=== PATIENT | male | born 1935 | race Caucasian/White ===

== ENCOUNTER 2016-12-09 17:31 | Inpatient (IN) | payer OTHER, MEDICARE ==
[~2016-12-09] VITALS: Ht 180.3 cm; Wt 87.0 kg
[2016-12-09] VITALS (7 sets, daily range): BP systolic 140–151; BP diastolic 65–77; PULSE 75–92; RESP 16–20; TEMP 98.2–98.4; O2SAT 95–98
[2016-12-09] MEDS ORDERED: SODIUM CHLORIDE 0.9% FLUSH 5 ML FLUSH IVF PRN (17:45)
[2016-12-09] MEDS ORDERED: TRIBTAB PO (17:46)
[2016-12-09] MEDS ORDERED: METF500T PO (17:46)
[2016-12-09] MEDS ORDERED: CELE1CAP11 PO (17:46)
--- NOTE | 2016-12-09 17:54 | PD ---
HPI Chief Complaint: Neuro Symptoms/ Deficits Time Seen by Provider: 17:45 Travel History International Travel<30 days: No Contact w/Intl Traveler<30days: No Traveled to known affect area: No History of Present Illness HPI 81-year-old male coming in with reports of possible TIA approximately 45 minutes prior to arrival via ambulance. Patient currently feels fine. Patient's family states a 6 minute episode of decreased responsiveness with question of right sided facial droop and reaching for objects that weren't there.. Patient does not recall the event. Patient currently states no headache, dizziness, visual changes, or weakness of any kind. Patient has no history of cardiac issues in the past. Patient is a type II diabetic taking metformin, hypertension medications, [facility] Past Medical History Diabetes: Yes Patient Takes Glucophage: Yes Hypertension: Yes Past Surgical History Abdominal Surgery: Yes (COLON RESECTION) Appendectomy: Yes Cholecystectomy: Yes Social History Alcohol Use: No (HX) Tobacco Use: No Substance Use: No Allergies-Medications (Allergen,Severity, Reaction): Coded Allergies: No Known Allergies (Unverified , 12/09/16) Reported Meds & Prescriptions Reported Meds & Active Scripts Active Reported Celecoxib 50 Mg Cap Unknown Dose PO BID Metformin (Metformin HCl) 500 Mg Tab 500 Mg PO BIDPC With meals Tribenzor (Rfldkhtben-Iomeqczrho-Jvxoqmzsxktmtfhjejn) 20-5-12.5 mg Tab Unknown Dose PO DAILY Review of Systems Except as stated in HPI: all other systems reviewed are Neg General / Constitutional: No: Fever Eyes: No: Visual changes HENT: No: Headaches, Vertigo, Lightheadedness Cardiovascular: No: Chest Pain or Discomfort Respiratory: No: Shortness of Breath Gastrointestinal: No: Abdominal Pain Genitourinary: No: Dysuria Musculoskeletal: No: Pain Skin: No Rash Neurologic: No: Weakness, Dizziness, Focal Abnormalities, Coordination Problem , Tremor, Ataxia, Headache, Change in Mentation, Slurred Speech, Paresthesia, Incontinence, Seizures, Sensory Disturbance Psychiatric: No: Depression Endocrine: No: Polydipsia Hematologic/Lymphatic: No: Easy Bruising Physical Exam Narrative GENERAL: Patient appears in good spirits and in no acute distress. SKIN: Warm and dry. Normal color. Normal turgor. HEAD: Atraumatic. Normocephalic. EYES: Pupils equal and round. Status post cataracts bilaterally. No scleral icterus. No injection or drainage. ENT: No nasal bleeding or discharge. Mucous membranes pink and moist. No facial droop. Patient able swallow without difficulty. Pharynx is clear. Uvula is midline. Tongue motions normal. NECK: Trachea midline. No JVD. Supple and nontender. CARDIOVASCULAR: Regular rate and rhythm. No murmurs gallops or rubs. RESPIRATORY: No accessory muscle use. Clear to auscultation. Breath sounds equal bilaterally. GASTROINTESTINAL: Abdomen soft, non-tender, nondistended. Hepatic and splenic margins not palpable. MUSCULOSKELETAL: Extremities without clubbing, cyanosis, or edema. No obvious deformities. NEUROLOGICAL: Awake and alert. No obvious cranial nerve deficits. Motor grossly within normal limits. Five out of 5 muscle strength in the arms and legs. Normal speech. PSYCHIATRIC: Appropriate mood and affect; insight and judgment normal. Data Data Last Documented VS Vital Signs Date Time Temp Pulse Resp B/P Pulse Ox O2 Delivery O2 Flow Rate FiO2 12/09/16 19:00 85 18 151/67 98 Room Air Orders Electrocardiogram (12/09/16 17:42) Complete Blood Count With Diff (12/09/16 17:42) Comprehensive Metabolic Panel (12/09/16 17:42) Magnesium (Mg) (12/09/16 17:42) Ckmb (Isoenzyme) Profile (12/09/16 17:42) Troponin I (12/09/16 17:42) Act Partial Throm Time (Ptt) (12/09/16 17:42) Prothrombin Time / Inr (Pt) (12/09/16 17:42) Chest, Single Ap (12/09/16 17:42) Ct Brain W/O Iv Contrast(Rout) (12/09/16 17:42) Ecg Monitoring (12/09/16 17:42) Iv Access Insert/Monitor (12/09/16 17:42) Oximetry (12/09/16 17:42) Sodium Chloride 0.9% Flush (Ns Flush) (12/09/16 17:45) Admit Order (Ed Use Only) (12/09/16 19:19) Labs Laboratory Tests Test 12/09/16 18:00 White Blood Count 12.1 TH/MM3 Red Blood Count 6.05 MIL/MM3 Hemoglobin 15.9 GM/DL Hematocrit 47.7 % Mean Corpuscular Volume 78.8 FL Mean Corpuscular Hemoglobin 26.3 PG Mean Corpuscular Hemoglobin 33.3 % Concent Red Cell Distribution Width 14.7 % Platelet Count 377 TH/MM3 Mean Platelet Volume 8.2 FL Neutrophils (%) (Auto) 80.4 % Lymphocytes (%) (Auto) 12.9 % Monocytes (%) (Auto) 4.3 % Eosinophils (%) (Auto) 1.3 % Basophils (%) (Auto) 1.1 % Neutrophils # (Auto) 9.7 TH/MM3 Lymphocytes # (Auto) 1.6 TH/MM3 Monocytes # (Auto) 0.5 TH/MM3 Eosinophils # (Auto) 0.2 TH/MM3 Basophils # (Auto) 0.1 TH/MM3 CBC Comment DIFF FINAL Differential Comment Prothrombin Time 10.7 SEC Prothromb Time International 1.0 RATIO Ratio Activated Partial 24.5 SEC Thromboplast Time Sodium Level 135 MEQ/L Potassium Level 4.9 MEQ/L Chloride Level 103 MEQ/L Carbon Dioxide Level 21.2 MEQ/L Anion Gap 11 MEQ/L Blood Urea Nitrogen 24 MG/DL Creatinine 1.71 MG/DL Estimat Glomerular Filtration 39 ML/MIN Rate Random Glucose 149 MG/DL Calcium Level 9.5 MG/DL Magnesium Level 2.0 MG/DL Total Bilirubin 0.5 MG/DL Aspartate Amino Transf 27 U/L (AST/SGOT) Alanine Aminotransferase 20 U/L (ALT/SGPT) Alkaline Phosphatase 63 U/L Total Creatine Kinase 94 U/L Troponin I LESS THAN 0.02 NG/ML Total Protein 7.5 GM/DL Albumin 3.7 GM/DL MDM Medical Decision Making Medical Screen Exam Complete: Yes Emergency Medical Condition: Yes Differential Diagnosis Stroke. TIA. Near syncopal episode. Narrative Course Patient is medically stable at time of exam. CT of the head is ordered. EKG is performed. Showing a normal sinus rhythm without significant ST-T changes. This is reviewed with Dr. Luna. Labs ordered including CBC, CMP, cardiac panel, and PT PTT and INR. Labs are unremarkable. Chest x-ray is normal per radiologist. CT scan shows no acute findings per radiologist. Patient is felt to warrant observation and further neurological workup. Call was placed to the hospitalist, and patient is discussed with Dr. Frye. Patient will be admitted to Obs. Diagnosis Primary Impression: TIA (transient ischemic attack) Qualified Code: G45.9 - Transient cerebral ischemia, unspecified type Admitting Information Admitting Physician Requests: Observation Condition: Stable Hayden Lao Dec 09, 2016 17:54
--- NOTE | 2016-12-09 18:09 | RADRPT ---
EXAM DATE/TIME: 12/09/2016 17:42 [facility] COMPARISON: No previous studies available for comparison. INDICATIONS : Syncopal episode. MEDICAL HISTORY : None. SURGICAL HISTORY : None. ENCOUNTER: Initial ACUITY: 1 day PAIN SCORE: 0/10 LOCATION: Bilateral chest FINDINGS: A single view of the chest demonstrates the lungs to be symmetrically aerated without evidence of mas s, infiltrate or effusion. The cardiomediastinal contours are unremarkable. Degenerative changes and scoliosis of the thoracic spine are noted. CONCLUSION: No acute disease. Bijan Ch MD on December 09, 2016 at 18:08 Board Certified Radiologist. This report was verified electronically.
[2016-12-09 18:18] LABS: AUTOMATED NEUTROPHIL # 9.7 TH/MM3 (1.8-7.7); BASOPHIL # 0.1 TH/MM3 (0-0.2); BASOPHIL % 1.1 % (0.0-2.0); EOSINOPHIL # 0.2 TH/MM3 (0-0.4); EOSINOPHIL % 1.3 % (0.0-4.0); HEMATOCRIT 47.7 % (39.0-51.0); HEMO FLAGS DIFF FINAL; LYMPH % 12.9 % (9.0-44.0); LYMPHOCYTE # 1.6 TH/MM3 (1.0-4.8); MEAN CELL VOLUME 78.8 FL (80.0-100.0); MEAN CORPUSCULAR HEMOGLOBIN 26.3 PG (27.0-34.0); MEAN CORPUSCULAR HGB CONC 33.3 % (32.0-36.0); MONO % 4.3 % (0.0-8.0); NEUT % 80.4 % (16.0-70.0); PLATELET COUNT 377 TH/MM3 (150-450); RED BLOOD COUNT 6.05 MIL/MM3 (4.50-5.90); RED CELL DISTRIBUTION WIDTH 14.7 % (11.6-17.2); WHITE BLOOD COUNT 12.1 TH/MM3 (4.0-11.0)
[2016-12-09 18:27] LABS: APTT (PATIENT) 24.5 SEC (24.3-30.1); PROTHROMBIN TIME - PATIENT 10.7 SEC (9.8-11.6)
[2016-12-09 18:39] LABS: ALKALINE PHOSPHATASE 63 U/L (45-117); ALT (GPT) 20 U/L (12-78); ANION GAP 11 MEQ/L (5-15); AST (GOT) 27 U/L (15-37); BICARBONATE 21.2 MEQ/L (21.0-32.0); BLOOD UREA NITROGEN 24 MG/DL (7-18); CHLORIDE 103 MEQ/L (98-107); CREATINE KINASE 94 U/L (39-308); GLOMERULAR FILTRATION RATE 39 ML/MIN (>89); POTASSIUM 4.9 MEQ/L (3.5-5.1); SODIUM (NA) 135 MEQ/L (136-145); TOTAL BILIRUBIN ADULT 0.5 MG/DL (0.2-1.0)
--- NOTE | 2016-12-09 18:42 | RADRPT ---
EXAM DATE/TIME: 12/09/2016 18:24 [facility] COMPARISON: No previous studies available for comparison. INDICATIONS : Episode of aphasia and right facial droop RADIATION DOSE: 41.36 CTDIvol (mGy) MEDICAL HISTORY : Hypertension. Diabetes mellitus type 2. SURGICAL HISTORY : None. ENCOUNTER: Initial ACUITY: 1 day PAIN SCALE: 0/10 LOCATION: Cranial TECHNIQUE: Multiple contiguous axial images were obtained of the head. Using automated exposure control and adj ustment of the mA and/or kV according to patient size, radiation dose was kept as low as reasonably a chievable to obtain optimal diagnostic quality images. FINDINGS: Diffuse cerebral atrophy is noted. Old lacunar infarcts are noted within the right basal ganglia and left skyler. There is no acute hemorrhage, acute infarct, mass effect or extra-axial fluid collection s. There is minimal mucosal thickening involving the left ethmoid air cells. CONCLUSION: 1. 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 2. Diffuse cerebral atrophy. 3. No acute infarct, acute hemorrhage, mass effect or extra-axial fluid collections. 4. Mild mucosal thickening involving the left ethmoid air cells. Bijan Ch MD on December 09, 2016 at 18:35 Board Certified Radiologist. This report was verified electronically.
--- NOTE | 2016-12-09 19:14 | PD ---
Data Data Last Documented VS Vital Signs Date Time Temp Pulse Resp B/P Pulse Ox O2 Delivery O2 Flow Rate FiO2 12/09/16 19:00 85 18 151/67 98 Room Air Orders Electrocardiogram (12/09/16 17:42) Complete Blood Count With Diff (12/09/16 17:42) Comprehensive Metabolic Panel (12/09/16 17:42) Magnesium (Mg) (12/09/16 17:42) Ckmb (Isoenzyme) Profile (12/09/16 17:42) Troponin I (12/09/16 17:42) Act Partial Throm Time (Ptt) (12/09/16 17:42) Prothrombin Time / Inr (Pt) (12/09/16 17:42) Chest, Single Ap (12/09/16 17:42) Ct Brain W/O Iv Contrast(Rout) (12/09/16 17:42) Ecg Monitoring (12/09/16 17:42) Iv Access Insert/Monitor (12/09/16 17:42) Oximetry (12/09/16 17:42) Sodium Chloride 0.9% Flush (Ns Flush) (12/09/16 17:45) Labs Laboratory Tests Test 12/09/16 18:00 White Blood Count 12.1 TH/MM3 Red Blood Count 6.05 MIL/MM3 Hemoglobin 15.9 GM/DL Hematocrit 47.7 % Mean Corpuscular Volume 78.8 FL Mean Corpuscular Hemoglobin 26.3 PG Mean Corpuscular Hemoglobin 33.3 % Concent Red Cell Distribution Width 14.7 % Platelet Count 377 TH/MM3 Mean Platelet Volume 8.2 FL Neutrophils (%) (Auto) 80.4 % Lymphocytes (%) (Auto) 12.9 % Monocytes (%) (Auto) 4.3 % Eosinophils (%) (Auto) 1.3 % Basophils (%) (Auto) 1.1 % Neutrophils # (Auto) 9.7 TH/MM3 Lymphocytes # (Auto) 1.6 TH/MM3 Monocytes # (Auto) 0.5 TH/MM3 Eosinophils # (Auto) 0.2 TH/MM3 Basophils # (Auto) 0.1 TH/MM3 CBC Comment DIFF FINAL Differential Comment Prothrombin Time 10.7 SEC Prothromb Time International 1.0 RATIO Ratio Activated Partial 24.5 SEC Thromboplast Time Sodium Level 135 MEQ/L Potassium Level 4.9 MEQ/L Chloride Level 103 MEQ/L Carbon Dioxide Level 21.2 MEQ/L Anion Gap 11 MEQ/L Blood Urea Nitrogen 24 MG/DL Creatinine 1.71 MG/DL Estimat Glomerular Filtration 39 ML/MIN Rate Random Glucose 149 MG/DL Calcium Level 9.5 MG/DL Magnesium Level 2.0 MG/DL Total Bilirubin 0.5 MG/DL Aspartate Amino Transf 27 U/L (AST/SGOT) Alanine Aminotransferase 20 U/L (ALT/SGPT) Alkaline Phosphatase 63 U/L Total Creatine Kinase 94 U/L Troponin I LESS THAN 0.02 NG/ML Total Protein 7.5 GM/DL Albumin 3.7 GM/DL MDM Supervised Visit with ERIC: Yes Narrative Course The history, exam, and medical decision-making in the associated midlevel provider note were completed with my assistance. I reviewed and agree with the findings presented. I attest that I had a [id number] encounter with the patient on the same day, and personally performed and documented my assessment and findings in the medical record. *My assessment and Findings: This is a 81-year-old male who presents to the emergency department having had an episode of altered mental status that lasted for about 5 minutes associated with facial droop and him grabbing for objects that weren't there. Patient is a history of diabetes. His blood pressure is slightly elevated. CT scan and labs are reassuring. I think it's reasonable to keep him in observation for neurology consultation and further workup for possible TIA. Skye Luna MD Dec 09, 2016 19:14
[2016-12-09] MEDS ORDERED: ONDANSETRON HCL 4 MG/2 ML VIAL IVP PRN (19:30)
[2016-12-09] MEDS ORDERED: SODIUM CHLORIDE 0.9% FLUSH 5 ML FLUSH FLUSH PRN (19:30)
[2016-12-09] MEDS ORDERED: GLUCAGON 1 MG/ML VIAL OTHER PRN (19:30)
[2016-12-09] MEDS ORDERED: ACETAMINOPHEN 325 MG TAB PO PRN (19:30)
[2016-12-09] MEDS ORDERED: DEXTROSE 50% IN WATER 50 ML VIAL(D50) IV PUSH PRN (19:30)
[2016-12-09] MEDS ORDERED: BISACODYL 10 MG SUPP PR PRN (19:30)
--- NOTE | 2016-12-09 19:31 | HHI.HP ---
[facility] Primary Care Physician Frank Damian, Admission Diagnosis TIA Diagnoses: (1) TIA (transient ischemic attack) Diagnosis: Principal (2) Renal insufficiency Diagnosis: Principal (3) Leukocytosis Diagnosis: Principal (4) HTN (hypertension) Diagnosis: Principal (5) DM (diabetes mellitus) Diagnosis: Principal Travel History International Travel<30 Days: No Contact w/Intl Traveler <30 Da: No Traveled to Known Affected Are: No Past Family Social History Allergies: Coded Allergies: No Known Allergies (Unverified , 12/09/16) Physical Exam Vital Signs Vital Signs Date Time Temp Pulse Resp B/P Pulse Ox O2 Delivery O2 Flow Rate FiO2 12/09/16 19:00 85 18 151/67 98 Room Air 12/09/16 17:56 16 98 Room Air 12/09/16 17:38 92 18 149/77 97 Physical Exam GENERAL: This is a well-nourished, well-developed patient, in no apparent distress. SKIN: No rashes, ecchymoses or lesions. Cool and dry. HEAD: Atraumatic. Normocephalic. No temporal or scalp tenderness. EYES: Pupils equal round and reactive. Extraocular motions intact. No scleral icterus. No injection or drainage. ENT: Nose without bleeding, purulent drainage or septal hematoma. Throat without erythema, tonsillar hypertrophy or exudate. Uvula midline. Airway patent. NECK: Trachea midline. No JVD or lymphadenopathy. Supple, nontender, no meningeal signs. CARDIOVASCULAR: Regular rate and rhythm without murmurs, gallops, or rubs. RESPIRATORY: Clear to auscultation. Breath sounds equal bilaterally. No wheezes , rales, or rhonchi. GASTROINTESTINAL: Abdomen soft, non-tender, nondistended. No hepato-splenomegaly , or palpable masses. No guarding. MUSCULOSKELETAL: Extremities without clubbing, cyanosis, or edema. No joint tenderness, effusion, or edema noted. No calf tenderness. Negative Homans sign bilaterally. NEUROLOGICAL: Awake and alert. Cranial nerves II through XII intact. Motor and sensory grossly within normal limits. Five out of 5 muscle strength in all muscle groups. Normal speech. Laboratory Laboratory Tests Test 12/09/16 18:00 White Blood Count 12.1 Red Blood Count 6.05 Hemoglobin 15.9 Hematocrit 47.7 Mean Corpuscular Volume 78.8 Mean Corpuscular Hemoglobin 26.3 Mean Corpuscular Hemoglobin 33.3 Concent Red Cell Distribution Width 14.7 Platelet Count 377 Mean Platelet Volume 8.2 Neutrophils (%) (Auto) 80.4 Lymphocytes (%) (Auto) 12.9 Monocytes (%) (Auto) 4.3 Eosinophils (%) (Auto) 1.3 Basophils (%) (Auto) 1.1 Neutrophils # (Auto) 9.7 Lymphocytes # (Auto) 1.6 Monocytes # (Auto) 0.5 Eosinophils # (Auto) 0.2 Basophils # (Auto) 0.1 CBC Comment DIFF FINAL Differential Comment Prothrombin Time 10.7 Prothromb Time International 1.0 Ratio Activated Partial 24.5 Thromboplast Time Sodium Level 135 Potassium Level 4.9 Chloride Level 103 Carbon Dioxide Level 21.2 Anion Gap 11 Blood Urea Nitrogen 24 Creatinine 1.71 Estimat Glomerular Filtration 39 Rate Random Glucose 149 Calcium Level 9.5 Magnesium Level 2.0 Total Bilirubin 0.5 Aspartate Amino Transf 27 (AST/SGOT) Alanine Aminotransferase 20 (ALT/SGPT) Alkaline Phosphatase 63 Total Creatine Kinase 94 Troponin I LESS THAN 0.02 Total Protein 7.5 Albumin 3.7 Result Diagram: 12/09/16 1800 12/09/16 1800 Problem Qualifiers (1) TIA (transient ischemic attack): Qualified Code: G45.9 - Transient cerebral ischemia, unspecified type Paula Henry MD Dec 09, 2016 19:31
[2016-12-09] MEDS: SODIUM CHLORIDE 0.9% FLUSH 5 ML FLUSH FLUSH SCH (19:59)
[2016-12-09] MEDS: SODIUM CHLOR 0.9% 1000 ML INJ 1,000 ML IV SCH (19:59)
--- NOTE | 2016-12-09 20:12 | HHI.HP ---
HPI [facility] Primary Care Physician Frank Damian, Admission Diagnosis TIA Diagnoses: (1) TIA (transient ischemic attack) Diagnosis: Principal (2) Renal insufficiency Diagnosis: Principal (3) Leukocytosis Diagnosis: Principal (4) UTI (urinary tract infection) Diagnosis: Principal (5) HTN (hypertension) Diagnosis: Principal (6) DM (diabetes mellitus) Diagnosis: Principal Travel History International Travel<30 Days: No Contact w/Intl Traveler <30 Da: No Traveled to Known Affected Are: No History of Present Illness This is an 81-year-old male with a PMH of HTN, DM, h/o GI Bleed and TIA who was brought to the ER by family for possible TIA. Per Son, pt developed acute onset of right-sided facial droop and "was out of it", unable to get patient's attention or have him respond. Episode lasted approx 5 min, symptoms completely resolved. No incontinence, no seizure activity. Pt denies any symptoms. On arrival, BP 149/77, HR 92, O2 sat 90% on RA, Afebrile. WBC 12.1. Creatinine 1.71, no previous labs for comparison. CXR with no acute findings. CT Head with old lacunar infarct involving right basal ganglia and left skyler. Pt and family report no known history of CVA. Previously on "baby aspirin" however told to stop ASA after GI Bleed 5yrs ago. Not on anticoagulation currently. Review of Systems Other ROS: 14 point review of systems otherwise negative. Past Family Social History Past Medical History PMH: HTN, DM, h/o GI Bleed and TIA Past Surgical History PAST SURGICAL HISTORY: Colon Resection, Appendectomy, Cholecystectomy Allergies: Coded Allergies: No Known Allergies (Unverified , 12/09/16) Family History PAST FAMILY HISTORY: Reviewed. No h/o DM or CAD Social History PAST SOCIAL HISTORY: Negative for alcohol, tobacco or drugs. Physical Exam Vital Signs Vital Signs Date Time Temp Pulse Resp B/P Pulse Ox O2 Delivery O2 Flow Rate FiO2 12/09/16 19:00 85 18 151/67 98 Room Air 12/09/16 17:56 16 98 Room Air 12/09/16 17:38 92 18 149/77 97 Physical Exam PE: GENERAL: Pleasant elderly white male in no acute distress. Family at bedside. HEENT: PERRLA, EOMI. No scleral icterus or conjunctival pallor. No lid lag or facial droop. CARDIOVASCULAR: Regular rate and rhythm. No obvious murmurs to auscultation. No chest tenderness to palpation. RESPIRATORY: No obvious rhonchi or wheezing. Clear to auscultation. Breath sounds equal bilaterally. GASTROINTESTINAL: Abdomen soft, non-tender, nondistended. BS normal. MUSCULOSKELETAL: Extremities without clubbing, cyanosis, or edema. No obvious deformities. NEUROLOGICAL: Awake, alert and oriented x4. No focal neurologic deficits. Moving both upper and lower extremities spontaneously. Laboratory Laboratory Tests Test 12/09/16 18:00 White Blood Count 12.1 Red Blood Count 6.05 Hemoglobin 15.9 Hematocrit 47.7 Mean Corpuscular Volume 78.8 Mean Corpuscular Hemoglobin 26.3 Mean Corpuscular Hemoglobin 33.3 Concent Red Cell Distribution Width 14.7 Platelet Count 377 Mean Platelet Volume 8.2 Neutrophils (%) (Auto) 80.4 Lymphocytes (%) (Auto) 12.9 Monocytes (%) (Auto) 4.3 Eosinophils (%) (Auto) 1.3 Basophils (%) (Auto) 1.1 Neutrophils # (Auto) 9.7 Lymphocytes # (Auto) 1.6 Monocytes # (Auto) 0.5 Eosinophils # (Auto) 0.2 Basophils # (Auto) 0.1 CBC Comment DIFF FINAL Differential Comment Prothrombin Time 10.7 Prothromb Time International 1.0 Ratio Activated Partial 24.5 Thromboplast Time Sodium Level 135 Potassium Level 4.9 Chloride Level 103 Carbon Dioxide Level 21.2 Anion Gap 11 Blood Urea Nitrogen 24 Creatinine 1.71 Estimat Glomerular Filtration 39 Rate Random Glucose 149 Calcium Level 9.5 Magnesium Level 2.0 Total Bilirubin 0.5 Aspartate Amino Transf 27 (AST/SGOT) Alanine Aminotransferase 20 (ALT/SGPT) Alkaline Phosphatase 63 Total Creatine Kinase 94 Troponin I LESS THAN 0.02 Total Protein 7.5 Albumin 3.7 Result Diagram: 12/09/16 1800 12/09/16 1800 Assessment and Plan Problem List: (1) TIA (transient ischemic attack) ICD Code: G45.9 Status: Acute (2) Renal insufficiency ICD Code: N28.9 Status: Acute (3) Leukocytosis ICD Code: D72.829 Status: Acute (4) UTI (urinary tract infection) ICD Code: N39.0 Status: Acute (5) HTN (hypertension) ICD Code: I10 Status: Acute (6) DM (diabetes mellitus) ICD Code: E11.9 Status: Acute Assessment and Plan A/P: 1. TIA: h/o TIA, presented w/ acute right-sided facial droop and aphasia, completely resolved after approx 5min per family. CT Head w/ old lacunar infarcts involving right basal ganglia and left skyler, images reviewed by me. Pt and family report no known history of CVA. Obtain MRI Brain-imaging done while in ER, MRI Brain w/ questionable subacute lacunar infarcts in left cerebellar hemispheres and multiple old lacunar infarcts in right basal ganglia and bilateral cerebellar hemispheres. Carotid US pending. Previously on ASA however told to stop after GI Bleed 5yrs ago. In light of multiple CVA's, will start on ASA. Check Lipid Profile, Hgb A1c. Start Statin. Neuro Consult for further recommendation. 2. Renal Insufficiency: Creatinine 1.71, no previous labs for comparison. IVF , repeat labs in am. Check U/a. 3. Leukocytosis: WBC 12.1. Afebrile. CXR w/ no acute findings, images reviewed by me. Check U/a. 4. UTI: U/a resulted, + for UTI. Start IV Rocephin, continue IVF. 5. HTN: Controlled. BP 150's systolic. Will monitor. 6. DM: Sliding scale w/ Accu-Cheks. Hold Metformin. Check Hgb A1c. 7. DVT Prophylaxis: SCD/Teds. 8. Social work for d/c planning as needed. 9. Case discussed w/ ER physician at length. Physician Certification 2 Midnight Certification Type: Admission for Inpatient Services Order for Inpatient Services The services are ordered in accordance with Medicare regulations or non- Medicare payer requirements, as applicable. In the case of services not specified as inpatient-only, they are appropriately provided as inpatient services in accordance with the 2-midnight benchmark. Estimated LOS (days): 2 days is the estimated time the patient will need to remain in the hospital, assuming treatment plan goals are met and no additional complications. Post-Hospital Plan: Not yet determined Problem Qualifiers (1) TIA (transient ischemic attack): Qualified Code: G45.9 - Transient cerebral ischemia, unspecified type Paula Henry MD Dec 09, 2016 20:11
--- NOTE | 2016-12-09 20:12 | RADRPT ---
EXAM DATE/TIME: 12/09/2016 19:44 [facility] COMPARISON: CT BRAIN W/O CONTRAST, December 09, 2016, 18:24. INDICATIONS : Slurred speech. Confusion, Resolved. MEDICAL HISTORY : Diabetes mellitus type 2. Hypertension. SURGICAL HISTORY : Bowel resection. ENCOUNTER: Initial ACUITY: 1 day PAIN SCORE: 0/10 LOCATION: Cranial TECHNIQUE: Multiplanar, multisequence MRI of the brain was performed without contrast. FINDINGS: Diffuse cerebral atrophy is again noted. Old lacunar infarcts are noted within the right basal gangl ia and left skyler. Old lacunar infarcts are also noted within the cerebellar hemispheres bilaterally (left worse than right). There are questionable subacute lacunar infarcts involving the left cerebel lar hemisphere also. Clinical correlation is recommended. No hemorrhage, midline shift or extra-axi al fluid collections are noted. Mild periventricular and subcortical white matter small-vessel ische erich changes are noted bilaterally. There is mild mucosal thickening involving the left ethmoid air c ells. CONCLUSION: 1. Questionable subacute lacunar infarcts within the left cerebellar hemisphere. 2. Multiple old lacunar infarcts within the right basal ganglia and bilateral cerebellar hemispheres (left worse than right). 3. Diffuse cerebral atrophy. 4. Mild periventricular and subcortical white matter small-vessel ischemic changes bilaterally. 5. Old lacunar infarcts within the left skyler. 6. No acute hemorrhage, midline shift or extra-axial fluid collections. Bijan Ch MD on December 09, 2016 at 20:01 Board Certified Radiologist. This report was verified electronically.
[2016-12-09] MEDS: INSULIN ASPART SUPPLEMENTAL SCALE SQ SCH (21:00)
[2016-12-09 21:22] LABS: BACTERIA, URINE FEW /hpf; BLOOD, URINE NEG (NEG); COMMENT (UR) CULTURE INDICATED; CULTURE IF INDICATED CULTURE INDICATED; GLUCOSE,URINE NEG (NEG); HYALINE CAST, URINE 2 /lpf (RARE); KETONE, URINE NEG (NEG); MUCUS URINE FEW /lpf (OCC); NITRITE,URINE NEG (NEG); SQUAMOUS EPITHELIAL CELL URINE 1 /hpf (0-5); URINE COLOR YELLOW (YELLW/STRAW)
--- NOTE | 2016-12-09 21:26 | EKG ---
Date Performed: 12/09/2016 Time Performed: 17:50:53 PTAGE: 81 years EKG: Sinus rhythm POSSIBLE INFERIOR MYOCARDIAL INFARCTION ABNORMAL ECG NO PREVIOUS TRACING DOCTOR: Ernst Moore Interpretating Date/Time 12/09/2016 21:24:50
--- NOTE | 2016-12-09 22:25 | RADRPT ---
EXAM DATE/TIME: 12/09/2016 21:28 [facility] COMPARISON: No previous studies available for comparison. INDICATIONS : TIA. MEDICAL HISTORY : Diabetes mellitus type 2. Hypertension. SURGICAL HISTORY : Bowel resection. ENCOUNTER: Initial ACUITY: 1 day PAIN SCORE: 2/10 LOCATION: Bilateral neck PEAK SYSTOLIC VELOCITIES (cm/sec): ICA/CCA RATIO: Right: 1.0 Left: 1.3 ICA: Right: 73 Left: 117 CCA: Right: 75 Left: 90 ECA: Right: 97 Left: 120 VERTEBRAL: Right: 40 antegrade Left: 53 antegrade Elevated flow velocities and ICA/CCA ratios have been found to correlate with increased degrees of vessel stenosis, calculated as percentage of diameter relative to a normal segment of distal ICA/CCA FINDINGS: RIGHT CAROTID: No significant stenosis is visualized. The waveforms are within normal limits. LEFT CAROTID: No significant stenosis is visualized. The waveforms are within normal limits. VERTEBRAL ARTERIES: Antegrade flow is seen in both vertebral arteries. MISCELLANEOUS: None. CONCLUSION: No hemodynamically significant stenosis. Bijan Ch MD on December 09, 2016 at 22:23 Board Certified Radiologist. This report was verified electronically.
[2016-12-09] MEDS: cefTRIAXone INJ 1,000 MG in SODIUM CHLORIDE 0.9% INJ 100 ML IV SCH (22:42)
[2016-12-10] VITALS (8 sets, daily range): BP systolic 125–144; BP diastolic 60–69; PULSE 77–93; RESP 16–20; TEMP 97.7–98.8; O2SAT 94–100
[2016-12-10] MEDS: SODIUM CHLOR 0.9% 1000 ML INJ 1,000 ML IV SCH ×3 (05:24→22:18)
[2016-12-10 05:32] LABS: BASOPHIL # 0.1 TH/MM3 (0-0.2); BASOPHIL % 0.9 % (0.0-2.0); EOSINOPHIL # 0.2 TH/MM3 (0-0.4); EOSINOPHIL % 1.8 % (0.0-4.0); HEMATOCRIT 42.7 % (39.0-51.0); HEMO FLAGS DIFF FINAL; LYMPH % 17.6 % (9.0-44.0); LYMPHOCYTE # 1.9 TH/MM3 (1.0-4.8); MEAN CELL VOLUME 77.8 FL (80.0-100.0); MEAN CORPUSCULAR HEMOGLOBIN 25.6 PG (27.0-34.0); MEAN CORPUSCULAR HGB CONC 32.9 % (32.0-36.0); MONO % 7.2 % (0.0-8.0); NEUT % 72.5 % (16.0-70.0); PLATELET COUNT 318 TH/MM3 (150-450); RED BLOOD COUNT 5.49 MIL/MM3 (4.50-5.90); RED CELL DISTRIBUTION WIDTH 14.6 % (11.6-17.2); WHITE BLOOD COUNT 11.1 TH/MM3 (4.0-11.0)
[2016-12-10 06:06] LABS: ALKALINE PHOSPHATASE 55 U/L (45-117); ALT (GPT) 14 U/L (12-78); ANION GAP 7 MEQ/L (5-15); AST (GOT) 9 U/L (15-37); BICARBONATE 27.2 MEQ/L (21.0-32.0); BLOOD UREA NITROGEN 21 MG/DL (7-18); CHLORIDE 106 MEQ/L (98-107); GLOMERULAR FILTRATION RATE 44 ML/MIN (>89); HDL CHOLESTEROL 29.9 MG/DL (40.0-60.0); LDL CHOLESTEROL 94 MG/DL (0-99); POTASSIUM 4.8 MEQ/L (3.5-5.1); SODIUM (NA) 140 MEQ/L (136-145); TOTAL BILIRUBIN ADULT 0.3 MG/DL (0.2-1.0)
[2016-12-10] MEDS: INSULIN ASPART SUPPLEMENTAL SCALE SQ SCH ×4 (06:40→20:39)
[2016-12-10] MEDS ORDERED: ASPIRIN EC 81 MG TABEC PO SCH (09:00)
[2016-12-10] MEDS: SODIUM CHLORIDE 0.9% FLUSH 5 ML FLUSH FLUSH SCH ×2 (09:00→20:36)
[2016-12-10] MEDS: PRAVASTATIN SOD 40 MG TAB PO SCH (09:09)
--- NOTE | 2016-12-10 09:24 | HHI.PR ---
Subjective Remarks Follow up for CVA. The patient is seen with his son at bedside. The patient is awake, alert, oriented x4. He has no medical complaints today. He reports yesterday an episode of unresponsiveness and slurred speech, lasted approx. 5 minutes. He now feels back to his baseline. Denies any current headache, dizziness, lightheadedness, slurred speech, numbness/weakness/paresthesias. His PCP is Dr. Damian. He denies any history of CKD. Objective Vitals Vital Signs Date Time Temp Pulse Resp B/P Pulse Ox O2 Delivery O2 Flow Rate FiO2 12/10/16 08:20 97.7 78 16 125/60 95 12/10/16 04:16 98.2 87 20 144/68 97 12/09/16 23:43 98.2 75 20 140/65 97 12/09/16 23:03 78 12/09/16 21:51 84 12/09/16 21:30 98.4 84 20 150/72 95 12/09/16 19:00 85 18 151/67 98 Room Air 12/09/16 17:56 16 98 Room Air 12/09/16 17:38 92 18 149/77 97 Result Diagram: 12/10/168 12/10/168 Imaging Last Impressions Head CT 12/09/161741 Signed Impressions: Service Date/Time: Friday, December 09, 2016 18:24 - CONCLUSION: 1. 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 2. Diffuse cerebral atrophy. 3. No acute infarct, acute hemorrhage, mass effect or extra-axial fluid collections. 4. Mild mucosal thickening involving the left ethmoid air cells. Bijan Ch MD Chest X-Ray 12/09/161741 Signed Impressions: Service Date/Time: Friday, December 09, 2016 17:42 - CONCLUSION: No acute disease. Bijan Ch MD Carotid Artery Ultrasound 12/09/16 0000 Signed Impressions: Service Date/Time: Friday, December 09, 2016 21:28 - CONCLUSION: No hemodynamically significant stenosis. Bijan Ch MD Brain MRI 12/09/16 0000 Signed Impressions: Service Date/Time: Friday, December 09, 2016 19:44 - CONCLUSION: 1. Questionable subacute lacunar infarcts within the left cerebellar hemisphere. 2. Multiple old lacunar infarcts within the right basal ganglia and bilateral cerebellar hemispheres (left worse than right). 3. Diffuse cerebral atrophy. 4. Mild periventricular and subcortical white matter small-vessel ischemic changes bilaterally. 5. Old lacunar infarcts within the left skyler. 6. No acute hemorrhage, midline shift or extra-axial fluid collections. Bijan Ch MD Objective Remarks GENERAL: Well-nourished, well-developed elderly male patient in [facility]. SKIN: Warm and dry. No rash. HEAD: Normocephalic. Atraumatic. EYES: Pupils equal and round. No scleral icterus. No injection or drainage. ENT: No nasal bleeding or discharge. Mucous membranes pink and moist. NECK: Supple. Trachea midline. CARDIOVASCULAR: Regular rate and rhythm. S1, S2 noted. No murmur appreciated. RESPIRATORY: No accessory muscle use. Clear to auscultation. Breath sounds equal bilaterally. GASTROINTESTINAL: Abdomen soft, non-tender, nondistended. Normoactive bowel sounds x4. MUSCULOSKELETAL: No obvious deformities. Extremities without clubbing, cyanosis , or edema. NEUROLOGICAL: Awake and alert. No obvious cranial nerve deficits. Motor grossly within normal limits. 5/5 muscle strength in bilateral upper and lower extremities. Normal speech. PSYCHIATRIC: Appropriate mood and affect; insight and judgment normal. Medications and IVs Current Medications Medications (Trade) Dose Ordered Sig/Toby Route Start Time Stop Time Status Last Admin (NS Flush) 2 ml UNSCH PRN IVF 12/09/16 17:45 (D50w (Vial) Inj) 25 ml UNSCH PRN IV PUSH 12/09/16 19:30 Glucagon 1 mg 1 mg UNSCH PRN OTHER 12/09/16 19:30 (NS 1000 ml Inj) 1,000 ml @ 70 mls/hr [id number] IV 12/09/16 19:24 12/10/16 09:11 (NS Flush) 2 ml UNSCH PRN FLUSH 12/09/16 19:30 (NS Flush) 2 ml BID FLUSH 12/09/16 21:00 12/09/16 19:59 (Zofran Inj) 4 mg Q6H PRN IVP 12/09/16 19:30 (Dulcolax Supp) 10 mg DAILY PRN VA 12/09/16 19:30 (Tylenol) 650 mg Q6H PRN PO 12/09/16 19:30 Pravastatin Sodium 40 mg 40 mg DAILY PO 12/10/16 09:00 12/10/16 09:09 (Rocephin Inj/NS Inj) 100 ml @ 200 mls/hr Q24H IV 12/09/16 22:15 12/09/16 22:42 (Plavix) 75 mg DAILY PO 12/11/16 09:00 (Lac-Hydrin 12% Lotion) 1 applic BID TOPICAL 12/10/16 09:30 Urinary Catheter: No Vascular Central Line Catheter: No A/P Problem List: (1) TIA (transient ischemic attack) ICD Code: G45.9 Status: Acute (2) Renal insufficiency ICD Code: N28.9 Status: Acute (3) Leukocytosis ICD Code: D72.829 Status: Acute (4) UTI (urinary tract infection) ICD Code: N39.0 Status: Acute (5) HTN (hypertension) ICD Code: I10 Status: Acute (6) DM (diabetes mellitus) ICD Code: E11.9 Status: Acute Assessment and Plan 81-year-old male with a PMH of HTN, DM, h/o GI Bleed and TIA who was brought to the ER by family for possible TIA. Per Son, pt developed acute onset of right- sided facial droop and "was out of it", unable to get patient's attention or have him respond. Episode lasted approx 5 min, symptoms completely resolved. Prior hx of TIA, however per pt and family, no known history of CVA. CVA - Subacute Lacunar Infarct Left Cerebellum: CT Head w/ old lacunar infarcts involving right basal ganglia and left skyler, images reviewed by me. MRI Brain showed questionable subacute lacunar infarcts in left cerebellar hemispheres and multiple old lacunar infarcts in right basal ganglia and bilateral cerebellar hemispheres. Carotid US negative. Neuro consulted, recommended starting Plavix instead of aspirin given Hx of GIB on aspirin 5years ago. Lipid Profile with cholesterol 232, LDL 94, triglycerides 232; started on statin. Hgb A1c pending. Neuro ordered Head MRA and Echocardiogram, pending. PT/OT consult. Renal Insufficiency: Creatinine 1.71, no previous labs for comparison. IVF, monitor labs, improving. Outpatient f/up with PCP Dr. Damian. Leukocytosis: WBC 12.1. Afebrile. CXR w/ no acute findings, images reviewed by me. UA with UTI, see below. UTI: U/a + for UTI. Started IV Rocephin, continue IVF. Monitor urine culture. HTN: Controlled. Monitor. DM: Sliding scale w/ Accu-Cheks. Hold Metformin. Check Hgb A1c. DVT Prophylaxis: SCD/Teds. Written by Oralia Block, acting as scribe for Dr. Lizama on 12/10/16 at 09:20. The documentation accurately reflects the work performed [id number] by me on at 0920 Discharge Planning Discharge pending head MRA, echocardiogram, PT/OT eval. Problem Qualifiers (1) TIA (transient ischemic attack): Qualified Code: G45.9 - Transient cerebral ischemia, unspecified type Oralia Block PA-C Dec 10, 2016 09:24 Roger Lizama MD Dec 10, 2016 16:54
[2016-12-10] MEDS: LACTIC ACID (AMMONIUM LACTATE) 12% LOTION 225 GM BTL TOPICAL SCH ×2 (09:30→20:37)
--- NOTE | 2016-12-10 09:47 | MB ---
cc: CANDY PEACOCK MD DATE OF CONSULTATION: 12/10/2016 REASON FOR CONSULTATION: Possible TIA. HISTORY OF PRESENT ILLNESS A 81-year-old male with past medical history of hypertension, diabetes, history of lower GI bleed 5 years ago for which EGD was done and was reported as unremarkable. Patient was on aspirin 81 mg daily, but he was advised to stop aspirin after GI bleeding, so currently on no antiplatelets. The patient was brought to the ER at [facility] by his son for possible TIA. As per the son the patient developed an acute onset weakness while at dinner, sitting at the table he developed an acute onset of right-sided face droop and was "out of it". The son states that the patient was staring, he turned very pale, denies sweating and was not able to respond for up to 4 minutes. He denies any facial twitches, convulsive activity, loss of sphincter control. The patient was "floppy all over" without noticeable weakness on one side of the body, the patient has no recollection of these symptoms. As per the family the blood sugar by the EMS was 131. On arrival to the ED the blood pressure was 149/77. Oxygen sat was 99. A head CT scan without contrast revealed old lacunar infarcts involving the right basal ganglia and left skyler with diffuse cerebral atrophy, no acute infarct, acute hemorrhage or mass effect or extra-axial fluid collection, mild mucosal thickening involving the left ethmoid air. REVIEW OF SYSTEMS A 12-point review of systems is negative except for what is stated in the HPI. PAST MEDICAL HISTORY 1. Hypertension. 2. Diabetes. 3. History of GI bleeding. 4. Possible TIA. PAST SURGICAL HISTORY 1. Colon resection. 2. Appendectomy. 3. Cholecystectomy. ALLERGIES No known allergies. FAMILY HISTORY Noncontributory. SOCIAL HISTORY He lives alone, uses a walker for safety and equilibrium. Denies alcohol, tobacco or recreational drug use. PHYSICAL EXAMINATION GENERAL: Pleasant, aware, alert, good historian, in no acute distress with son and [id number] at bedside. HEENT: Atraumatic, normocephalic. Intact vision and intact hearing. CARDIOVASCULAR: Regular rate and rhythm. No obvious murmurs. RESPIRATORY: Clear to auscultation. No wheezes. GASTROINTESTINAL: Soft, abdomen not distended. MUSCULOSKELETAL: Extremities without cyanosis or edema. Moves all extremities equally. NEUROLOGICAL: Awake, alert, oriented to time, person and place. Intact speech. Intact speech content. Intact memory. Cranial nerves II-XII are grossly intact. Muscle strength 5/5 bilateral and symmetrical. Normal tone with fine action tremor bilateral (chronic). Reflexes 1+ bilateral symmetrical, other than the bilateral ankles which are diminished. Plantars are bilaterally downgoing. Intact pain and temperature throughout. Intact cerebellar function, ygyeea-[id number] and bddd-ta-iocn bilateral and symmetrical. LABORATORY DATA WBC 12.1, hemoglobin 15.9, platelet 377, INR 1, sodium 135, potassium 4.9, anion gap 11, BUN 24, creatinine 1.71, random glucose 149, calcium 9.5, magnesium 2, AST 20, ALT 63, troponin less than 0.02. DIAGNOSTIC IMAGING STUDIES - Brain MRI without contrast revealed questionable subacute lacunar infarct within the left cerebellar hemisphere. Multiple old lacunar infarcts with the right basal ganglia and bilateral cerebellar hemispheres, left worse than the right. Diffuse cerebral atrophy. Mild periventricular and subcortical white matter small vessel ischemic changes bilaterally. Old lacunar infarcts in the left skyler. No acute hemorrhage, midline shift or extra-axial fluid collection. - Carotid ultrasound revealed no hemodynamically significant stenosis. DIAGNOSTIC IMPRESSION 1. TIA. 2. History of remote ischemic infarcts. 3. Possible hypoglycemic episode. PLAN 1. Neuro checks q. four hourly. 2. In light of the history of GI bleeding I recommend switching aspirin to Plavix 75 mg daily. 3. Brain MRA w/o contrast 4. Cardiac echo. 5. Telemetry. 6. PT, OT recommendations are appreciated. 7. DVT prophylaxis, SCDs. 8. GI prophylaxis. Thank you for the opportunity to participate in the care of your patient. MD GAYLE Griggs/BELINDA /9:06 AM /9:19 AM ELLIOT
--- NOTE | 2016-12-10 10:39 | RADRPT ---
EXAM DATE/TIME: 12/10/2016 09:56 [facility] COMPARISON: MRI BRAIN W/O CONTRAST, December 09, 2016, 19:44. INDICATIONS: TIA. Confusion with slurred speech that has resolved. MEDICAL HISTORY: Diabetes mellitus type 2. Hypertension. SURGICAL HISTORY: Colon resection. ENCOUNTER: Subsequent ACUITY: 2 day PAIN SCORE: 0/10 LOCATION: Cranial Please note a normal MRA of the brain does not entirely exclude the possibility of a small aneurysm, nor the possibility of distal intracranial vessel disease. TECHNIQUE: 3D time of flight MRA was performed. Source images, multiplanar STS MIP, and 3D volume MIP reconstru ctions were reviewed. FINDINGS: The upper cervical, petrous, cavernous and supraclinoid portions of the internal carotid arteries are patent without significant stenosis or occlusion. The anterior and middle cerebral arteries are als o patent without significant stenosis or occlusion. The upper most portion of the right vertebral ar melania is occluded. The upper most portion of the left vertebral artery is patent. The basilar artery is patent. There is proximal occlusion of the right posterior cerebral artery with reconstitution o f the distal branch. There is also proximal occlusion of the left posterior cerebral artery with no s ignificant reconstitution of its distal branch. No aneurysm formation is noted. CONCLUSION: 1. 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 2. Proximal occlusion of the right posterior cerebral artery with reconstitution of the main distal branch. 3. 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 Bijan Ch MD on December 10, 2016 at 10:27 Board Certified Radiologist. This report was verified electronically.
[2016-12-10 12:48] LABS: HEMOGLOBIN A1a 0.9 %; HEMOGLOBIN A1b 2.3 %; HEMOGLOBIN LA1C 2.1 %; HEMOGLOBIN P3 4.4 %
--- NOTE | 2016-12-10 15:48 | ECHLIM ---
Study Study Date:12/10/2016 STUDY CONCLUSIONS SUMMARY - Left ventricle: The cavity size was normal. Wall thickness was normal. Systolic function was normal. The estimated ejection fraction was in the range of 55% to 60%. - Mitral valve: Mildly calcified annulus. If LV function is below 40, please consider prescribing an ACEI or ARB or document rationale for non-use. PROCEDURE DATA STUDY STATUS: Elective. Procedure: Transthoracic echocardiography. Image quality was suboptimal. Scanning was performed from the parasternal, apical, and subcostal acoustic windows. Study completion: The patient tolerated the procedure well. Transthoracic echocardiography. M-mode, complete 2D, complete spectral Doppler, and color Doppler. Height: Height: 71in. Weight: Weight: 190.6lb. Body mass index: BMI: 26.6kg/m^2. Body surface area: BSA: 2.07m^2. Patient status: Inpatient. CARDIAC ANATOMY LEFT VENTRICLE: The cavity size was normal. Wall thickness was normal. Systolic function was normal. The estimated ejection fraction was in the range of 55% to 60%. Images were inadequate for LV wall motion assessment. AORTIC VALVE: Trileaflet; mildly thickened leaflets. Doppler: Transvalvular velocity was within the normal range. There was no stenosis. No regurgitation. AORTA: Aortic root: The aortic root was normal in size. MITRAL VALVE: Mildly calcified annulus. Doppler: Transvalvular velocity was within the normal range. There was no evidence for stenosis. No regurgitation. LEFT ATRIUM: The atrium was normal in size. RIGHT VENTRICLE: The cavity size was normal. Wall thickness was normal. PULMONIC VALVE: Doppler: Transvalvular velocity was within the normal range. There was no evidence for stenosis. No regurgitation. TRICUSPID VALVE: Structurally normal valve. Doppler: Transvalvular velocity was within the normal range. No regurgitation. PULMONARY ARTERY: Not visualized. Systolic pressure was within the normal range. RIGHT ATRIUM: The atrium was normal in size. PERICARDIUM: There was no pericardial effusion. SYSTEMIC VEINS: Inferior vena cava: Not visualized. Patient weight: 190.6lb _Ejection fraction:_ 65-75% _Fractional shortening:_ 32% up to 5Kg 5-11.5Kg 11.6-22.9Kg 23-45Kg 45-57Kg Aortic Root 7-13 <17 13-22 17-27 17-27 LA diam 6-13 <23 24-38 33-47 37-40 RVID 10-17 7-15 7-15 7-18 8-17 LVIDd 12-22 <32 24-38 33-47 37-40 LVPW 2-4 3-6 5-7 6-8 7-8 IVS 2-4 3-6 5-7 6-8 7-8 BASIC MEASUREMENTS ADULT NORMAL Left ventricle LV internal dimension, ED, chordal level, 43.7 mm 43-52 PLAX LV internal dimension, ES, chordal level, 33.1 mm 23-38 PLAX Fractional shortening, chordal level, PLAX *24 % >29 LV posterior wall thickness, ED 8.37 mm IVS/LVPW ratio, ED 1.12 <1.3 Ventricular septum Septal thickness, ED 9.37 mm LEGEND: Mean values are shown as u=mean value. Asterisk (*) dial values outside specified normal range. Prepared and signed by Hesham Cedeno [id number]
[2016-12-10] MEDS: cefTRIAXone INJ 1,000 MG in SODIUM CHLORIDE 0.9% INJ 100 ML IV SCH (20:36)
[2016-12-11 04:50] VITALS: BP 137/63; PULSE 72; RESP 20; TEMP 97.5; O2SAT 95
[2016-12-11] MEDS: INSULIN ASPART SUPPLEMENTAL SCALE SQ SCH ×2 (06:01→11:00)
[2016-12-11 07:26] VITALS: BP 141/73; PULSE 71; RESP 16; TEMP 98; O2SAT 96
[2016-12-11 07:56] VITALS: PULSE 67
[2016-12-11 08:32] LABS: BICARBONATE 24.8 MEQ/L (21.0-32.0); POTASSIUM 4.2 MEQ/L (3.5-5.1)
[2016-12-11] MEDS: SODIUM CHLORIDE 0.9% FLUSH 5 ML FLUSH FLUSH SCH (09:00)
[2016-12-11] MEDS: PRAVASTATIN SOD 40 MG TAB PO SCH (09:00)
[2016-12-11] MEDS ORDERED: CLOPIDOGREL 75 MG TAB PO SCH (09:00)
[2016-12-11] MEDS: LACTIC ACID (AMMONIUM LACTATE) 12% LOTION 225 GM BTL TOPICAL SCH (09:00)
--- NOTE | 2016-12-11 09:38 | HHI.PR ---
Subjective Remarks Follow up for CVA. The patient reports no further episodes of slurred speech/ confusion/unresponsiveness overnight. He feels well, back to baseline, and wants to go home. Agrees to [facility]. With abnormal head MRA, discussed with Dr. Langley , recommends vascular surgery evaluation. Objective Vitals Vital Signs Date Time Temp Pulse Resp B/P Pulse Ox O2 Delivery O2 Flow Rate FiO2 12/11/16 07:26 98.0 71 16 141/73 96 12/11/16 04:50 97.5 72 20 137/63 95 12/10/16 23:35 97.7 78 20 129/64 100 12/10/16 20:26 97.8 82 20 127/66 94 12/10/16 20:00 77 12/10/16 16:47 98.8 89 16 142/68 96 12/10/16 12:42 98.0 91 16 139/69 96 I/O 12/10/16 12/10/16 12/10/16 12/11/16 12/11/16 12/11/16 07:00 15:00 23:00 07:00 15:00 23:00 Intake Total 2155 ml 443 ml Balance 2155 ml 443 ml Intake IV Total 2155 ml 443 ml Result Diagram: 12/10/16 0458 12/11/16 0724 Imaging Last Impressions Head Magnetic Resonance Angiography 12/10/16 0000 Signed Impressions: Service Date/Time: Saturday, December 10, 2016 09:56 - CONCLUSION: 1. 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 2. Proximal occlusion of the right posterior cerebral artery with reconstitution of the main distal branch. 3. 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 Bijan Ch MD Head CT 12/09/161741 Signed Impressions: Service Date/Time: Friday, December 09, 2016 18:24 - CONCLUSION: 1. 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 2. Diffuse cerebral atrophy. 3. No acute infarct, acute hemorrhage, mass effect or extra-axial fluid collections. 4. Mild mucosal thickening involving the left ethmoid air cells. Bijan Ch MD Chest X-Ray 12/09/161741 Signed Impressions: Service Date/Time: Friday, December 09, 2016 17:42 - CONCLUSION: No acute disease. Bijan Ch MD Carotid Artery Ultrasound 12/09/16 0000 Signed Impressions: Service Date/Time: Friday, December 09, 2016 21:28 - CONCLUSION: No hemodynamically significant stenosis. Bijan Ch MD Brain MRI 12/09/16 0000 Signed Impressions: Service Date/Time: Friday, December 09, 2016 19:44 - CONCLUSION: 1. Questionable subacute lacunar infarcts within the left cerebellar hemisphere. 2. Multiple old lacunar infarcts within the right basal ganglia and bilateral cerebellar hemispheres (left worse than right). 3. Diffuse cerebral atrophy. 4. Mild periventricular and subcortical white matter small-vessel ischemic changes bilaterally. 5. Old lacunar infarcts within the left skyler. 6. No acute hemorrhage, midline shift or extra-axial fluid collections. Bijan Ch MD Objective Remarks GENERAL: Well-nourished, well-developed elderly male patient in [facility]. SKIN: Warm and dry. No rash. HEAD: Normocephalic. Atraumatic. EYES: Pupils equal and round. No scleral icterus. No injection or drainage. ENT: No nasal bleeding or discharge. Mucous membranes pink and moist. NECK: Supple. Trachea midline. CARDIOVASCULAR: Regular rate and rhythm. S1, S2 noted. No murmur appreciated. RESPIRATORY: No accessory muscle use. Clear to auscultation. Breath sounds equal bilaterally. GASTROINTESTINAL: Abdomen soft, non-tender, nondistended. Normoactive bowel sounds x4. MUSCULOSKELETAL: No obvious deformities. Extremities without clubbing, cyanosis , or edema. NEUROLOGICAL: Awake and alert. No obvious cranial nerve deficits. Motor grossly within normal limits. 5/5 muscle strength in bilateral upper and lower extremities. Normal speech. PSYCHIATRIC: Appropriate mood and affect; insight and judgment normal. Medications and IVs Current Medications Medications (Trade) Dose Ordered Sig/Toby Route Start Time Stop Time Status Last Admin (NS Flush) 2 ml UNSCH PRN IVF 12/09/16 17:45 (D50w (Vial) Inj) 25 ml UNSCH PRN IV PUSH 12/09/16 19:30 Glucagon 1 mg 1 mg UNSCH PRN OTHER 12/09/16 19:30 (NS 1000 ml Inj) 1,000 ml @ 70 mls/hr [id number] IV 12/09/16 19:24 12/10/16 22:18 (NS Flush) 2 ml UNSCH PRN FLUSH 12/09/16 19:30 (NS Flush) 2 ml BID FLUSH 12/09/16 21:00 12/10/16 20:36 (Zofran Inj) 4 mg Q6H PRN IVP 12/09/16 19:30 (Dulcolax Supp) 10 mg DAILY PRN [place] 12/09/16 19:30 (Tylenol) 650 mg Q6H PRN PO 12/09/16 19:30 Pravastatin Sodium 40 mg 40 mg DAILY PO 12/10/16 09:00 12/10/16 09:09 (Rocephin Inj/NS Inj) 100 ml @ 200 mls/hr Q24H IV 12/09/16 22:15 12/10/16 20:36 (Plavix) 75 mg DAILY PO 12/11/16 09:00 (Lac-Hydrin 12% Lotion) 1 applic BID TOPICAL 12/10/16 09:30 12/10/16 20:37 Urinary Catheter: No Vascular Central Line Catheter: No A/P Problem List: (1) TIA (transient ischemic attack) ICD Code: G45.9 Status: Acute (2) Renal insufficiency ICD Code: N28.9 Status: Acute (3) Leukocytosis ICD Code: D72.829 Status: Acute (4) UTI (urinary tract infection) ICD Code: N39.0 Status: Acute (5) HTN (hypertension) ICD Code: I10 Status: Acute (6) DM (diabetes mellitus) ICD Code: E11.9 Status: Acute Assessment and Plan 81-year-old male with a PMH of HTN, DM, h/o GI Bleed and TIA who was brought to the ER by family for possible TIA. Per Son, pt developed acute onset of right- sided facial droop and "was out of it", unable to get patient's attention or have him respond. Episode lasted approx 5 min, symptoms completely resolved. Prior hx of TIA, however per pt and family, no known history of CVA. CVA - Subacute Lacunar Infarct Left Cerebellum: CT Head w/ old lacunar infarcts involving right basal ganglia and left skyler, images reviewed by me. -MRI Brain showed questionable subacute lacunar infarcts in left cerebellar hemispheres and multiple old lacunar infarcts in right basal ganglia and bilateral cerebellar hemispheres. -Carotid US negative. -Neuro consulted, recommended starting Plavix instead of aspirin given Hx of GIB on aspirin 5years ago. -Lipid Profile with cholesterol 232, LDL 94, triglycerides 232; started on statin. Hgb A1c 6.0. -Head MRA showed proximal occlusion of L and R posterior cerebral artery; also occlusion of right vertebral artery -Discussed MRA results with Dr. Langley who recommended evaluation by vascular surgery, consult placed. Vascular surgery recommended medical management at this time -Echocardiogram with normal EF 55-60% -PT/OT consult, recommends [facility], case management consulted Renal Insufficiency: Creatinine 1.71, no previous labs for comparison. IVF, monitor labs, improving. Outpatient f/up with PCP Dr. Damian. Leukocytosis: WBC 12.1. Afebrile. CXR w/ no acute findings, images reviewed by me. UA with UTI, see below. UTI: U/a + for UTI. Started IV Rocephin however urine culture with mixed justice , probable contaminants, will d/c abx. HTN: Controlled. Monitor. DM: Sliding scale w/ Accu-Cheks. Hgb A1c 6.0. DVT Prophylaxis: SCD/Teds. Written by Oralia Block, acting as scribe for Dr. Lizama on 12/11/16 at 09: 37. The documentation accurately reflects the work performed [id number] by me on at 0937 Discharge Planning Discharge patient to home Condition on discharge: Improved Regular Diet as tolerated Ad Kalyani activity no driving Rx written: Plavix and pravastatin Follow-up with primary care physician in 3 days Problem Qualifiers (1) TIA (transient ischemic attack): Qualified Code: G45.9 - Transient cerebral ischemia, unspecified type Oralia Block PA-C Dec 11, 2016 09:38 Roger Lizama MD Dec 11, 2016 14:19
--- NOTE | 2016-12-11 12:03 | HHI.FF ---
Face to Face Verification Diagnosis: (1) CVA (cerebral vascular accident) (2) TIA (transient ischemic attack) (3) HTN (hypertension) (4) DM (diabetes mellitus) (5) Renal insufficiency (6) UTI (urinary tract infection) Physical Therapy Order: Evaluate and Treat, Improve ambulation, Strength and gait training Home Health Nursing Order: Medical education Signs/symptoms of disease process Nursing assessment with vital signs I have seen patient Pacheco Robert on 12/11/16. My clinical findings support the need for the requested home health care services because: Ltd mobility - disease progression Deconditioned w/ increased weakness Limited ability to care for self I certify that my clinical findings support that this patient is homebound because: Unsteady gait/balance Unsafe to leave home unassisted Unable to use public transportation Oralia Block PA-C Dec 11, 2016 12:03
--- NOTE | 2016-12-11 12:19 | PD.VS.CON ---
History of Present Illness Chief Complaint: facial droop and confusion 3d ago Consult Requested by: ED History of Present Illness 81 yo male who was with his son a few days ago when he "was out of it" per his son's recollection. The patient has no memory of it and then was completely normal a few minutes later. No prior stroke, TIA, or amaurosis. Lives independently. Was reaching for walker when this event happened. Past/Family/Social History Past Medical History HTN DM OA (B knee) finger accident (chain saw) Past Surgical History B knee replacement Social History lives independently Home Medications Reported Medications Celecoxib 50 Mg CapUnknown Dose PO BID Ref 0 12/09/16 Metformin 500 Mg Zud100 Mg PO BIDPC #60 TAB Ref 0 With meals 12/09/16 Ibqwanumwd-Cghuanhsnc-Lfemylqupbnchnrzdhm (Tribenzor)20-5-12.5 mg TabUnknown Dose PO DAILY #30 TAB Ref 0 12/09/16 Coded Allergies: No Known Allergies (Unverified , 12/09/16) Review of Systems Constitutional: DENIES: Dizziness Eyes: DENIES: Double Vision Ears, nose, mouth, throat: COMPLAINS OF: Vertigo Physical Exam Vitals/I&O Date Time Temp Pulse Resp B/P Pulse Ox O2 Delivery O2 Flow Rate FiO2 12/11/16 07:26 98.0 71 16 141/73 96 12/11/16 04:50 97.5 72 20 137/63 95 12/10/16 23:35 97.7 78 20 129/64 100 12/10/16 20:26 97.8 82 20 127/66 94 12/10/16 20:00 77 12/10/16 16:47 98.8 89 16 142/68 96 12/10/16 12:42 98.0 91 16 139/69 96 Neuro: awake alert, responsive ROMERO x 4 with 5/5 strength HEENT: NC/AT Neck: no JVD; trachea midline Lungs: nonlabored breathing Vascular: palpable UE pulses Extremities: ROMERO x 4 with symmetric strength Laboratory Tests Test 12/11/16 07:24 Sodium Level 141 Potassium Level 4.2 Chloride Level 109 Carbon Dioxide Level 24.8 Anion Gap 7 Blood Urea Nitrogen 20 Creatinine 1.46 Estimat Glomerular Filtration 46 Rate Random Glucose 90 Calcium Level 8.0 Magnesium Level 2.0 Date/Time Procedure Status Source Growth 12/09/16 21:10 Urine Culture - Final Complete Urine Clean Catch 50-100,000 CFU/ML MIXED MICHELET... Last 48 hours Impressions Head Magnetic Resonance Angiography 12/10/16 0000 Signed Impressions: Service Date/Time: Saturday, December 10, 2016 09:56 - CONCLUSION: 1. 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 2. Proximal occlusion of the right posterior cerebral artery with reconstitution of the main distal branch. 3. 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 Bijan Ch MD Head CT [id number]/09/[id number] Signed Impressions: Service Date/Time: Friday, December 09, 2016 18:24 - CONCLUSION: 1. 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 2. Diffuse cerebral atrophy. 3. No acute infarct, acute hemorrhage, mass effect or extra-axial fluid collections. 4. Mild mucosal thickening involving the left ethmoid air cells. Bijan Ch MD Chest X-Ray [id number]/09/[id number] Signed Impressions: Service Date/Time: Friday, December 09, 2016 17:42 - CONCLUSION: No acute disease. Bijan Ch MD Assessment and Plan Plan Unclear if the events the other day were a true TIA/CVA. Certainly not classically carotid-based and B ICA <50% by duplex. His symptoms may have represented sequelae of posterior circulation occlusion. Most importantly, as I discussed with the patient and his family, there is a greater chance of carotid-based stroke with CEA than with medical management. Furthermore, the posterior circulation abnormalities are best treated medically. To that end, I recommend ASA or plavix and a statin. He can f/u in my clinic anytime and he has my numbers. Bijan Montanez MD FACS rail signal mechanic [facility] (c) [phone] Bijan Montanez MD Dec 11, 2016 12:19
[2016-12-11 12:36] VITALS: BP 162/73; PULSE 76; RESP 19; TEMP 98.2; O2SAT 98
[2016-12-11] MEDS ORDERED: PRAV40TA PO (14:15)
[2016-12-11] MEDS ORDERED: PLAV75TA29 PO (14:15)
--- NOTE | 2016-12-11 14:16 | HHI.DCPOC ---
Discharge Care Plan Diagnosis: (1) TIA (transient ischemic attack) Your Health Problems Are: Difficulty with ADL Exercise Tolerance Goals to Promote Your Health * To prevent worsening of your condition and complications * To maintain your health at the optimal level Directions to Meet Your Goals Take your medications as prescribed Follow your dietary instruction Follow activity as directed Keep your appointments as scheduled Take your immunizations and boosters as scheduled If your symptoms worsen call your PCP, if no PCP go to Urgent Care Center or Emergency Room Smoking is Dangerous to Your Health. Avoid second hand smoke Call the 24-hour hour crisis hotline for domestic abuse at Roger Lizama MD Dec 11, 2016 14:16
== END 2016-12-11 15:47 | disposition home health service (06) | DRG 69 ==
LOC: NEPE 17:31 → NEDA 19:20 → OBSVTOIN 20:11 → NEPHCDU 21:14
PROVIDERS: ADMIT Internal Medicine; ATTEND Internal Medicine
DX: G45.9 Transient cerebral ischemic attack, unspecified (principal); I66.23 Occlusion and stenosis of bilateral posterior cerebral arteries; N39.0 Urinary tract infection, site not specified; R47.01 Aphasia; I65.01 Occlusion and stenosis of right vertebral artery; E11.9 Type 2 diabetes mellitus without complications; I10 Essential (primary) hypertension; Z79.84 Long term (current) use of oral hypoglycemic drugs; R29.810 Facial weakness; N28.9 Disorder of kidney and ureter, unspecified; Z86.73 Personal history of transient ischemic attack (TIA), and cerebral infarction without residual deficits
CPT/HCPCS: 70450; 70544; 70551; 71010; 80048; 80053; 80061; 81001; 82550; 82948; 83036; 83735; 84484; 85025; 85610; 85730; 87086; 93005; 93308; 93880; J0696; J7030

== ENCOUNTER 2018-05-29 00:23 | Inpatient (IN) ==
[2018-06-01] MEDS ORDERED: Morphine Inj 4 MG/ML Vial IV.PUSH PRN ×2
[2018-06-01] MEDS ORDERED: Bisacodyl 10 MG Supp RECTAL PRN
[2018-06-01] MEDS ORDERED: Dextrose 50% in Water 50 ML Vial IV.PUSH PRN
[2018-06-01] MEDS ORDERED: oxyCODONE/Acetaminophen 10/325 Tablet PO PRN
[2018-06-01] MEDS ORDERED: Acetaminophen 325 MG Tablet PO PRN ×2
[2018-06-01] MEDS ORDERED: Naloxone Inj 0.4 MG/ML Vial IV.PUSH PRN
[2018-06-01 07:36] LABS: INR 1.2 Ratio; Prothrombin Time 12.4 sec (9.8-11.6)
[2018-06-01] MEDS: Insulin NovoLOG Aspart Correctional Sugar Inj SQ SCH ×2 (08:17→12:04)
[2018-06-01 08:22] LABS: Hematocrit 25.6 % (39.0-51.0); Hemoglobin 7.5 gm/dL (13.0-17.0); Mean Corpuscular Volume 61.6 fL (80.0-100.0); Mean Platelet Volume 7.6 fL (7.0-11.0); Platelet Count 533 th/mm3 (150-450); Red Blood Count 4.15 mil/mm3 (4.50-5.90); Red Cell Distribution Width 19.4 % (11.6-17.2); White Blood Count 8.4 th/mm3 (4.0-11.0)
[2018-06-01 08:31] LABS: Mean Corpuscular HGB Conc 29.2 % (32.0-36.0)
[2018-06-01 08:38] LABS: Calcium 7.7 mg/dL (8.5-10.1); Potassium 4.3 meq/L (3.5-5.1)
[2018-06-01] MEDS ORDERED: amLODIPine 5 MG Tablet PO SCH (09:00)
[2018-06-01] MEDS ORDERED: Ferrous Sulfate 325 MG Tablet PO SCH (09:00)
[2018-06-01] MEDS ORDERED: Lisinopril 10 MG Tablet PO SCH (09:00)
[2018-06-01] MEDS ORDERED: Senna/Docusate Sodium 8.6/50 MG Tablet PO SCH (09:00)
--- NOTE | 2018-06-01 11:30 | P.PN ---
Subjective Interval history: Mr. Robert was afebrile overnight; isolated BP elevation 160/70 (0400 06/01) but other blood pressures normotensive. Patient reports doing well; he has continued difficulty with ambulation. No chest pain, shortness of breath, abnormal urination, or bowel movements. Patient plans to be discharged to rehab today. Addendum (~1500)- Discussed repeat Hgb today (7.5 this morning); patient declines due to desire to get to rehab and will plan for redraw tomorrow Physical Exam Vital signs: Vital Signs 05/31/18 20:00 06/01/18 00:00 06/01/18 04:00 Temperature 97.6 F 97.9 F 98 F Pulse Rate 80 72 98 H Respiratory Rate 17 22 22 Blood Pressure 108/57 L 118/63 160/70 H Pulse Oximetry 96 95 06/01/18 04:33 06/01/18 08:00 Temperature 97.9 F Pulse Rate 73 80 Respiratory Rate 20 Blood Pressure 140/61 Pulse Oximetry 97 Intake & Output 05/31/18 06/01/18 06/01/18 18:59 06:59 18:59 Weight 86.5 kg Narrative: GENERAL: resting in bed; no apparent distress. CARDIOVASCULAR: Normal rate and regular rhythm without murmurs to auscultation. Normal peripheral perfusion RESPIRATORY: Normal rate; CTAB GASTROINTESTINAL: Abdomen soft, non-tender, non-distended. Normal active bowel sounds MUSCULOSKELETAL: Extremities without cyanosis, or edema. NEURO: Alert & Oriented. Grossly normal cranial nerves. Grossly normal peripheral motor/sensory function. Gait not assessed. PSYCH: Appropriate mood and affect. Results - Labs CBC & Chem 7: 06/01/18 05:55 06/01/18 05:55 Laboratory Results - last 24 hr 05/28/18 05/28/18 05/28/18 18:55 18:55 18:55 WBC 10.6 RBC 4.60 Hgb 8.3 L Hct 28.4 L MCV 61.8 L MCH 17.9 L MCHC 29.1 L RDW 19.5 H Plt Count 445 MPV 7.9 Neut % (Auto) 78.0 H Lymph % (Auto) 13.8 [place] % (Auto) 6.6 Eos % (Auto) 1.1 Baso % (Auto) 0.5 Neut # (Auto) 8.3 H Lymph # (Auto) 1.5 [place] # (Auto) 0.7 Eos # (Auto) 0.1 Baso # (Auto) 0.1 CBC Comment DIFF FINAL PT 11.4 INR 1.1 APTT 25.5 Sodium 136 Potassium 4.9 Chloride 104 Carbon Dioxide 20.9 L Anion Gap 11 BUN 20 H Creatinine 1.33 H Estimated GFR 51 L POC Glucose Random Glucose 88 Hemoglobin A1c Calcium 7.9 L Phosphorus Magnesium Iron TIBC % Saturation Ferritin Total Bilirubin 0.7 AST 15 ALT 17 Alkaline Phosphatase 88 Ammonia Total Creatine Kinase Troponin I Total Protein 5.8 L Albumin 2.5 L Triglycerides Cholesterol LDL Cholesterol HDL Cholesterol Cholesterol/HDL Ratio Vitamin B12 Folate Free T4 TSH 3rd Generation 1.450 Urine Color Urine Turbidity Urine pH Ur Specific [place] Urine Protein Urine Glucose (UA) Urine Ketones Urine Occult Blood Urine Nitrite Urine Bilirubin Urine Urobilinogen Ur Leukocyte Esterase Urine RBC Urine WBC Ur Squamous Epith Cells Urine Mucus Micro UA Comment 05/28/18 05/28/18 05/28/18 22:45 22:45 22:45 WBC 8.7 RBC 4.89 Hgb 8.6 L Hct 30.0 L MCV 61.4 L MCH 17.5 L MCHC 28.5 L RDW 18.8 H Plt Count 451 H MPV 8.3 Neut % (Auto) 73.8 H Lymph % (Auto) 17.8 [place] % (Auto) 6.2 Eos % (Auto) 1.0 Baso % (Auto) 1.2 Neut # (Auto) 6.4 Lymph # (Auto) 1.6 [place] # (Auto) 0.5 Eos # (Auto) 0.1 Baso # (Auto) 0.1 CBC Comment DIFF FINAL PT 11.2 INR 1.1 APTT 21.0 L Sodium 137 Potassium 5.3 H Chloride 106 Carbon Dioxide 23.3 Anion Gap 8 BUN 20 H Creatinine 1.30 Estimated GFR 53 L POC Glucose Random Glucose 75 Hemoglobin A1c Calcium 8.1 L Phosphorus Magnesium Iron TIBC % Saturation Ferritin Total Bilirubin 0.7 AST 44 H ALT 17 Alkaline Phosphatase 92 Ammonia Total Creatine Kinase Troponin I 0.40 H Total Protein 6.2 L Albumin 2.7 L Triglycerides Cholesterol LDL Cholesterol HDL Cholesterol Cholesterol/HDL Ratio Vitamin B12 Folate Free T4 TSH 3rd Generation Urine Color Urine Turbidity Urine pH Ur Specific [place] Urine Protein Urine Glucose (UA) Urine Ketones Urine Occult Blood Urine Nitrite Urine Bilirubin Urine Urobilinogen Ur Leukocyte Esterase Urine RBC Urine WBC Ur Squamous Epith Cells Urine Mucus Micro UA Comment 05/28/18 05/29/18 05/29/18 22:45 03:59 08:05 WBC RBC Hgb Hct MCV MCH MCHC RDW Plt Count MPV Neut % (Auto) Lymph % (Auto) [place] % (Auto) Eos % (Auto) Baso % (Auto) Neut # (Auto) Lymph # (Auto) [place] # (Auto) Eos # (Auto) Baso # (Auto) CBC Comment PT INR APTT Sodium Potassium Chloride Carbon Dioxide Anion Gap BUN Creatinine Estimated GFR POC Glucose Random Glucose Hemoglobin A1c Calcium Phosphorus Magnesium Iron TIBC % Saturation Ferritin Total Bilirubin AST ALT Alkaline Phosphatase Ammonia Total Creatine Kinase Cancelled 115 Troponin I Cancelled 0.38 H Total Protein Albumin Triglycerides Cholesterol LDL Cholesterol HDL Cholesterol Cholesterol/HDL Ratio Vitamin B12 Folate Free T4 TSH 3rd Generation Urine Color YELLOW Urine Turbidity CLEAR Urine pH 6.0 Ur Specific [place] 1.013 Urine Protein NEG Urine Glucose (UA) NEG Urine Ketones NEG Urine Occult Blood NEG Urine Nitrite NEG Urine Bilirubin NEG Urine Urobilinogen 4.0 OR GREATER H Ur Leukocyte Esterase NEG Urine RBC LESS THAN 1 Urine WBC 1 Ur Squamous Epith Cells <1 Urine Mucus FEW H Micro UA Comment CULT NOT INDICATED 05/29/18 05/29/18 05/30/18 13:05 13:05 10:30 WBC RBC Hgb Hct MCV MCH MCHC RDW Plt Count MPV Neut % (Auto) Lymph % (Auto) [place] % (Auto) Eos % (Auto) Baso % (Auto) Neut # (Auto) Lymph # (Auto) [place] # (Auto) Eos # (Auto) Baso # (Auto) CBC Comment PT INR APTT Sodium 138 Potassium 4.1 D Chloride 105 Carbon Dioxide 21.6 Anion Gap 11 BUN 15 Creatinine 1.13 Estimated GFR 62 L POC Glucose Random Glucose 81 Hemoglobin A1c 4.9 4.9 Calcium 8.0 L Phosphorus 2.5 Magnesium 2.1 Iron TIBC % Saturation Ferritin Total Bilirubin 0.7 AST 16 ALT 16 Alkaline Phosphatase 89 Ammonia 21 Total Creatine Kinase 47 Troponin I 0.27 H D Total Protein 6.0 L Albumin 2.6 L Triglycerides 126 Cholesterol 112 L LDL Cholesterol 54 HDL Cholesterol 33.1 L Cholesterol/HDL Ratio 3.38 Vitamin B12 368 Folate Free T4 1.04 TSH 3rd Generation 1.450 Urine Color Urine Turbidity Urine pH Ur Specific [place] Urine Protein Urine Glucose (UA) Urine Ketones Urine Occult Blood Urine Nitrite Urine Bilirubin Urine Urobilinogen Ur Leukocyte Esterase Urine RBC Urine WBC Ur Squamous Epith Cells Urine Mucus Micro UA Comment 05/30/18 05/30/18 05/30/18 10:30 10:30 10:30 WBC 8.9 RBC 4.77 Hgb 8.4 L Hct 29.2 L MCV 61.3 L MCH 17.7 L MCHC 28.9 L RDW 19.7 H Plt Count 514 H MPV 7.6 Neut % (Auto) 70.8 H Lymph % (Auto) 19.5 [place] % (Auto) 6.7 Eos % (Auto) 1.6 Baso % (Auto) 1.4 Neut # (Auto) 6.3 Lymph # (Auto) 1.7 [place] # (Auto) 0.6 Eos # (Auto) 0.1 Baso # (Auto) 0.1 CBC Comment DIFF FINAL PT 12.0 H INR 1.2 APTT Sodium Potassium Chloride Carbon Dioxide Anion Gap BUN Creatinine Estimated GFR POC Glucose Random Glucose Hemoglobin A1c Calcium Phosphorus Magnesium Iron 16 L TIBC 255 % Saturation 6.3 L Ferritin 24 L Total Bilirubin AST ALT Alkaline Phosphatase Ammonia Total Creatine Kinase Troponin I Total Protein Albumin Triglycerides Cholesterol LDL Cholesterol HDL Cholesterol Cholesterol/HDL Ratio Vitamin B12 346 Folate 10.2 Free T4 TSH 3rd Generation Urine Color Urine Turbidity Urine pH Ur Specific [place] Urine Protein Urine Glucose (UA) Urine Ketones Urine Occult Blood Urine Nitrite Urine Bilirubin Urine Urobilinogen Ur Leukocyte Esterase Urine RBC Urine WBC Ur Squamous Epith Cells Urine Mucus Micro UA Comment 05/31/18 05/31/18 06/01/18 07:02 10:00 05:55 WBC 10.7 RBC 4.91 Hgb 8.7 L Hct 30.5 L MCV 62.0 L MCH 17.8 L MCHC 28.7 L RDW 19.5 H Plt Count 581 H MPV 7.9 Neut % (Auto) 75.2 H Lymph % (Auto) 14.3 [place] % (Auto) 6.5 Eos % (Auto) 2.7 Baso % (Auto) 1.3 Neut # (Auto) 8.1 H Lymph # (Auto) 1.5 [place] # (Auto) 0.7 Eos # (Auto) 0.3 Baso # (Auto) 0.1 CBC Comment DIFF FINAL PT 12.1 H 12.4 H INR 1.2 1.2 APTT Sodium Potassium Chloride Carbon Dioxide Anion Gap BUN Creatinine Estimated GFR POC Glucose Random Glucose Hemoglobin A1c Calcium Phosphorus Magnesium Iron TIBC % Saturation Ferritin Total Bilirubin AST ALT Alkaline Phosphatase Ammonia Total Creatine Kinase Troponin I Total Protein Albumin Triglycerides Cholesterol LDL Cholesterol HDL Cholesterol Cholesterol/HDL Ratio Vitamin B12 Folate Free T4 TSH 3rd Generation Urine Color Urine Turbidity Urine pH Ur Specific [place] Urine Protein Urine Glucose (UA) Urine Ketones Urine Occult Blood Urine Nitrite Urine Bilirubin Urine Urobilinogen Ur Leukocyte Esterase Urine RBC Urine WBC Ur Squamous Epith Cells Urine Mucus Micro UA Comment 06/01/18 06/01/18 06/01/18 05:55 05:55 07:36 WBC 8.4 RBC 4.15 L Hgb 7.5 L Hct 25.6 L MCV 61.6 L MCH 18.0 L MCHC 29.2 L RDW 19.4 H Plt Count 533 H MPV 7.6 Neut % (Auto) Lymph % (Auto) [place] % (Auto) Eos % (Auto) Baso % (Auto) Neut # (Auto) Lymph # (Auto) [place] # (Auto) Eos # (Auto) Baso # (Auto) CBC Comment PT INR APTT Sodium 140 Potassium 4.3 Chloride 108 H Carbon Dioxide 23.0 Anion Gap 9 BUN 12 Creatinine 0.94 Estimated GFR 76 L POC Glucose 78 Random Glucose 63 L Hemoglobin A1c Calcium 7.7 L Phosphorus Magnesium Iron TIBC % Saturation Ferritin Total Bilirubin AST ALT Alkaline Phosphatase Ammonia Total Creatine Kinase Troponin I Total Protein Albumin Triglycerides Cholesterol LDL Cholesterol HDL Cholesterol Cholesterol/HDL Ratio Vitamin B12 Folate Free T4 TSH 3rd Generation Urine Color Urine Turbidity Urine pH Ur Specific [place] Urine Protein Urine Glucose (UA) Urine Ketones Urine Occult Blood Urine Nitrite Urine Bilirubin Urine Urobilinogen Ur Leukocyte Esterase Urine RBC Urine WBC Ur Squamous Epith Cells Urine Mucus Micro UA Comment Assessment and Plan - Assessment (1) CVA (cerebral vascular accident) Code(s): I63.9 - Cerebral infarction, unspecified Status: Acute (2) Carotid stenosis Code(s): I65.29 - Occlusion and stenosis of unspecified carotid artery Status : Acute (3) HTN (hypertension) Code(s): I10 - Essential (primary) hypertension Status: Acute (4) Elevated troponin Code(s): R74.8 - Abnormal levels of other serum enzymes Status: Acute (5) Anemia Code(s): D64.9 - Anemia, unspecified Status: Acute - Plan Cerebral infarction due to unspecified occlusion or stenosis of right middle cerebral artery; concern for carotid stenosis Impression: Symptoms resolved with excepton of some gait instability (which is also chronic). Also so dementia underlying per Neuro MRI - tiny subacute frontal (R) stroke. Atrophy and other chronic changes. CTA neck- less than 50% stenosis of bilateral CA's Plan: Symptoms have resolved. Question about his compliance with Coumadin. Vascular surgery consulted- no carotid stenosis intervention recommended Neurology and Cardiology consulted; outpatient follow-up -Continue Eliquis at discharge -Continue BP control, glucose control, statin -Continue PT at rehab -avoid driving Essential (primary) hypertension Impression: Elevated BP during hospitalization; improved with amlodipine and Lisinopril -Discharge on: -Amlodipine 5mg daily -Lisinopril 10mg daily Troponin elevation Impression: No chest pain -Cardiology consulted -Not candidate for ischemic evaluation -Can f/u as outpatient for further consideration of loop/event recorder Anemia Impression: Hgb ~8.5-7.5 during hospitalization; 8.7-> 7.5 on day of discharge. Probable combination of iron deficiency and chronic disease, iron low. No suspicion for GI bleeding -Continue iron supplements -Advised repeat Hgb today but patient declined; will check CBC in 1 day. No active source of bleeding so patient deemed safe for discharge to rehab and Hgb f/u tomorrow -discussed plan with patient/family Code Status: Patient's family, Dr. Mcfarlane Discharge Planning: Planned discharge today to rehab facility (1) CVA (cerebral vascular accident) Qualifiers: CVA mechanism: occlusion Precerebral and cerebral artery: middle cerebral artery Laterality of affected vessel: right Qualified Code(s): I63.511 - Cerebral infarction due to unspecified occlusion or stenosis of right middle cerebral artery (2) Carotid stenosis Qualifiers: Laterality: right Qualified Code(s): I65.21 - Occlusion and stenosis of right carotid artery (3) HTN (hypertension) Qualifiers: Hypertension type: essential hypertension Qualified Code(s): I10 - Essential (primary) hypertension (5) Anemia Qualifiers: Anemia type: unspecified type Qualified Code(s): D64.9 - Anemia, unspecified
--- NOTE | 2018-06-01 15:13 | P.PNCA ---
Subjective Interval history: Doing well Family at the bedside Waiting to go to rehab Physical Exam Vital signs: Vital Signs 05/31/18 20:00 06/01/18 00:00 06/01/18 04:00 Temperature 97.6 F 97.9 F 98 F Pulse Rate 80 72 98 H Respiratory Rate 17 22 22 Blood Pressure 108/57 L 118/63 160/70 H Pulse Oximetry 96 95 06/01/18 04:33 06/01/18 08:00 06/01/18 09:00 Temperature 97.9 F Pulse Rate 73 80 87 Respiratory Rate 20 Blood Pressure 140/61 Pulse Oximetry 97 06/01/18 12:00 Temperature Pulse Rate 78 Respiratory Rate Blood Pressure Pulse Oximetry Intake & Output 05/31/18 06/01/18 06/01/18 18:59 06:59 18:59 Weight 86.5 kg Other: Date of Last Bowel Movement 05/31/18 Narrative: GENERAL: NAD SKIN: Warm and dry. HEAD: Atraumatic. Normocephalic. EYES: Pupils equal and round. No scleral icterus. No injection or drainage. ENT: No nasal bleeding or discharge. Mucous membranes pink and moist. NECK: Trachea midline. No JVD. CARDIOVASCULAR: Regular rate and rhythm. RESPIRATORY: No accessory muscle use. Clear to auscultation. Breath sounds equal bilaterally. GASTROINTESTINAL: Abdomen soft, non-tender, nondistended. Hepatic and splenic margins not palpable. MUSCULOSKELETAL: Extremities without clubbing, cyanosis, or edema. No obvious deformities. NEUROLOGICAL: Awake and alert. No obvious cranial nerve deficits. Motor grossly within normal limits. Five out of 5 muscle strength in the arms and legs. Normal speech. PSYCHIATRIC: Appropriate mood and affect; insight and judgment normal. Assessment and Plan - Assessment (1) CVA (cerebral vascular accident) Code(s): I63.9 - Cerebral infarction, unspecified Status: Acute (2) Carotid stenosis Code(s): I65.29 - Occlusion and stenosis of unspecified carotid artery Status : Acute (3) HTN (hypertension) Code(s): I10 - Essential (primary) hypertension Status: Acute (4) Elevated troponin Code(s): R74.8 - Abnormal levels of other serum enzymes Status: Acute (5) Anemia Code(s): D64.9 - Anemia, unspecified Status: Acute - Plan 1) Altered mental status due to CVA 2) Subacute CVA Per neurology 3) Elevated trop Most likely Type 2 due to CVA Not a candidate for ischemic evaluation Con't medical management 4) HTN Started on Norvasc Agree with adding Lisinopril 5) No history of AFib Can follow up outpatient for further consideration of event recorder or loop recorder 6) Subtherapeutic INR for previous CVA Started on Eliquis 7) Blood pressure better today Cardiovascularly stable for rehab today (1) CVA (cerebral vascular accident) Qualifiers: CVA mechanism: occlusion Precerebral and cerebral artery: middle cerebral artery Laterality of affected vessel: right Qualified Code(s): I63.511 - Cerebral infarction due to unspecified occlusion or stenosis of right middle cerebral artery (2) Carotid stenosis Qualifiers: Laterality: right Qualified Code(s): I65.21 - Occlusion and stenosis of right carotid artery (3) HTN (hypertension) Qualifiers: Hypertension type: essential hypertension Qualified Code(s): I10 - Essential (primary) hypertension (5) Anemia Qualifiers: Anemia type: unspecified type Qualified Code(s): D64.9 - Anemia, unspecified
--- NOTE | 2018-06-09 17:13 | P.DS ---
Date of admission: 05/29/18 02:15 Primary care physician: UNKNOWN Attending physician on discharge: Thien Gomez Anticipated date of discharge: 06/01/18 Brief History from admission: Per HPI by Dr. 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 The patient reports that he was in bed sleeping when his son attempted to wake him up. He reportedly stared at his son but did not answer him for approximately 15 minutes. Per emergency department documentation his son states that his father was sitting down staring and not talking or responding for 15 minutes. EMS was called and the patient was brought to the emergency department for further evaluation. The patient denies any chest pain or shortness of breath. Reports some nausea prior to going to bed today but denies emesis, abdominal pain or diarrhea. No fevers/chills. No lateralizing signs/symptoms. DS: Diagnosis - Discharge Diagnosis (1) CVA (cerebral vascular accident) Status: Acute (2) Carotid stenosis Status: Acute (3) HTN (hypertension) Status: Acute (4) Elevated troponin Status: Acute (5) Anemia Status: Acute DS: Summary Hospital Course: Mr. Robert is a 83 yo male with PMH significant for previous CVA anticoagulated on Coumadin, prostate cancer, hypertension, hyperlipidemia anemia , T2DM who presented with AMS which lasted for ~15 minutes and resolved before ED arrival. Head CT on admission demonstrated old infarct. Neurology consulted; MRI imaging obtained which showed small subacute right frontal stroke. CTA neck showed bilateral <50% stenosis. Vascular surgery consulted; no intervention recommended. Patient was also found to have a troponin elevation on admission; Cardiology was also consulted and was deemed to not be a candidate for ischemic evaluation. During hospitalization, patient's anticoagulation was changed from Coumadin to Eliquis. patient was found to be anemic with Hgb 7.5-8.5 during hospitalization; no active bleeding observed. Patient's chronic HTN was also treated during hospitalization with Amlodipine and Lisinopril. Patient was deemed stable for discharge to PT 06/01 with planned follow-up with Neurology and Cardiology and advised to follow-up as an outpatient for loop recorder. Next day hemoglobin also ordered. - Time Spent with Patient Total time spent providing and/or coordinating discharge services: Exam Narrative: GENERAL: resting in bed; no apparent distress. CARDIOVASCULAR: Normal rate and regular rhythm without murmurs to auscultation. Normal peripheral perfusion RESPIRATORY: Normal rate; CTAB GASTROINTESTINAL: Abdomen soft, non-tender, non-distended. Normal active bowel sounds MUSCULOSKELETAL: Extremities without cyanosis, or edema. NEURO: Alert & Oriented. Grossly normal cranial nerves. Grossly normal peripheral motor/sensory function. Gait not assessed. PSYCH: Appropriate mood and affect. Results Procedures completed during hospitalization: none - Additional Comments Neck CTA- noncalcified plaque in carotid bulb and proximal carotids with <50% stenosis MRI brain- tiny subacute R frontal stroke carotid US- left ICA- elevated velocities but normal ratios. R ICA- calcification with slightly elevated ratios. 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 Improved opacification of R posterior Cerebral with origin. mod to severe stenosis of proximal R posterior cerebral artery head CT- old infarcts Discharge Plan - Discharge Disposition Patient Disposition: Discharge to SNF - Discharge Condition Condition: Stable - Discharge Order Discharge Orders: Discharge Order (Routine); Ordered 06/01/18 Ordered By: Thien Gomez - Physicians Team Primary Care Provider: UNKNOWN, Attending Provider: Thien Gomez Other Providers: Fuentes Rodriguez MD ; Manjinder Celaya MD ; Ernst Moore MD ; Gilbert Hunt ; [facility],[place] - Rxs /Orders / Referrals /Forms Prescriptions: New amlodipine [Norvasc] 5 mg Tablet 5 mg PO DAILY RF: 0 apixaban [Eliquis] 5 mg Tablet 5 mg PO BID RF: 0 ferrous sulfate [FeroSul] 325 mg (65 mg iron) Tablet 325 mg PO BID RF: 0 lisinopril 10 mg Tablet 10 mg PO DAILY RF: 0 pravastatin 40 mg Tablet 40 mg PO DAILY RF: 0 sennosides-docusate sodium [Senna Plus] 8.6-50 mg Tablet 1 tab PO BID RF: 0 Continue metformin 500 mg Tablet 500 mg PO DAILY Discontinued pravastatin 40 mg Tablet 40 mg PO DAILY warfarin 3 mg Tablet 3 mg PO DAILY Ambulatory Orders / Order Sets / DME: Complete Blood Count NO Diff (Routine) Timeframe: 1 Day Location: Determined by Patient Ordered By: Thien Gomez Referrals: UNKNOWN, [Primary Care Provider] - See Instructions - Discharge Instructions Additional Instructions: Please check your hemoglobin in 1 day Please follow-up with your Supervisor Assembling and Primary Care Physician in 1-2 weeks - Post Discharge Care Plan Care Plan Goals: Discharge Care Plan Goals for Stroke You have been diagnosed with or have a high risk for a stroke, or a TIA ( transient ischemic attack). During a stroke, blood stops flowing to part of your brain. This can damage areas in the brain that control other parts of the body. Symptoms after a stroke depend on which part of the brain has been affected. Directions to Meet your Goals: 1. Diet: Based on your situation, your doctor will direct you to make changes in your diet. Some of the changes may include: * Reducing the amount of fat and cholesterol you eat * Don't add salt to your food. * Eat more fresh vegetables and fruits * Eat more lean proteins, such as fish, poultry, and beans and peas (legumes). Cut down on red meat & processed meats * Use low-fat dairy products * Limit vegetable oils and nut oils. Avoid any food that has hydrogenated listed in its ingredients. * Limit sweets and processed foods such as chips, cookies, and baked goods 2. Prevent Falls/Injury: You may be at risk of falling. Activity: * Keep your surrounding clutter free to help you walk more easily. * Your doctor and therapist may decide if you need an assistive device to walk safely. Shower/Bathing: * Test the water temperature with a hand or foot that was not affected by the stroke. * Use grab bars, a shower seat, a hand-held showerhead, and a long-handled brush. Getting Dressed: * Dress while sitting, starting with the affected side or limb. * Wear shirts that pull easily over your head. Wear pants or skirts with elastic waistbands. * Use zippers with loops attached to the pull tabs. 3. Lifestyle Modifications: * Take your medicines exactly as prescribed. Dont skip doses. * Begin an exercise program as directed by your doctor. You can benefit from simple activities such as walking or gardening. * Limit how much alcohol you drink. Men should have no more than 2 alcoholic drinks a day. Women should limit themselves to 1 alcoholic drink per day. * Know your cholesterol level. Follow your doctor's recommendations about how to keep cholesterol under control. * If you are a smoker, quit now. Joining a stop-smoking program will improve your chances of success. Ask your doctor for medicines or other methods to help you quit. * Learn stress management techniques to help you deal with stress in your home and work life. 4. Stroke Risk Factors: Once youve had a stroke, youre at greater risk for another one. Listed below are some other factors that can increase your risk for a stroke: * High blood pressure and High Cholesterol * Cigarette or cigar smoking * Diabetes * Carotid or other artery disease * Atrial fibrillation, atrial flutter, or other heart disease * Not being physically active * Obesity * Certain blood disorders such as sickle cell anemia * Drinking too much alcohol * Abusing street drugs * Race * Gender * Family history of stroke * Diet high in salty, fried, or greasy foods 5. Follow-up: * Keep your medical appointments. Close follow-up is important to stroke rehabilitation and recovery. * Some medicines require blood tests to check for progress or problems. Keep follow-up appointments for any blood tests ordered by your providers. Call 911 right away if you have: Weakness, tingling, or loss of feeling on one side of your face or body Sudden double vision or trouble seeing in one or both eyes Sudden trouble talking or slurred speech Trouble understanding others Sudden, severe headache Dizziness, loss of balance, or a sense of falling Blackouts or seizures F.A.S.T. is an easy way to remember the signs of stroke. When you see these signs, you know that you need to call 911 fast. F.A.S.T. stands for: * F is for face drooping. One side of the face is drooping or numb. When the person smiles, the smile is uneven. * A is for arm weakness. One arm is weak or numb. When the person lifts both arms at the same time, one arm may drift downward. * S is for speech difficulty. You may notice slurred speech or trouble speaking. The person can't repeat a simple sentence correctly when asked. * T is for time to call 911. If someone shows any of these symptoms, even if they go away, call 911 right away. Make note of the time the symptoms first appeared. Your Health Problems: Goals to Promote Your Health: * To prevent worsening of your condition * To maintain your health at the optimal level Directions to Meet Your Goals: * Take your medications as prescribed * Follow your dietary instruction * Follow activity as directed * Keep your appointments as scheduled * Take your immunizations and boosters as scheduled * If your symptoms worsen call your PCP * If no PCP go to Urgent Care or Emergency Room Smoking is dangerous to your health. Avoid second hand smoke. You may reach the 24-hour crisis hotline for domestic abuse at .
== END 2018-06-01 17:12 ==
LOC: N04 02:15
PROVIDERS: ADMIT Family Medicine; ATTEND Family Medicine